=== PATIENT | female | born 1965 | race Caucasian/White ===

== ENCOUNTER → 2022-06-15 | Outpatient (CLI) | payer BC ==
[~2022-06-15] MED LIST: CETI-24 PO; FLON1SPR; MELO7.5T35 PO; PANT40TA29 PO
== END ==
LOC: M LABSMTC 10:39
PROVIDERS: ATTEND Anesthesiology
DX: Z01.818 Encounter for other preprocedural examination (principal); Z11.52 Encounter for screening for COVID-19

== ENCOUNTER → 2022-07-12 | Outpatient (CLI) | payer BC | LOC: M LABSMTC 09:26 | PROVIDERS: ATTEND Anesthesiology | DX: Z01.812 Encounter for preprocedural laboratory examination (principal); Z11.52 Encounter for screening for COVID-19 ==

== ENCOUNTER 2022-07-17 09:05 | Day surgery (SDC) | payer BC ==
[~2022-07-17] VITALS: Ht 167.6 cm; Wt 87.9 kg
[~2022-07-17 09:05] MED LIST changes: +NS 1,000 ML IV ONE
[2022-07-17] MEDS ORDERED: LIDOCAINE 2% 100MG/5ML SDV (FOR ANES.) As Ordered ONE (10:53)
[2022-07-17] MEDS ORDERED: propofoL 200 MG/20 ML VIAL As Ordered ONE ×2 (10:53→11:21)
[2022-07-17 12:10] VITALS: BP 121/73
== END 2022-07-17 12:30 | disposition home or self-care (01) ==
LOC: M OPP 09:05
PROVIDERS: ATTEND Internal Medicine Gastroenterology
DX: K22.2 Esophageal obstruction (principal); K44.9 Diaphragmatic hernia without obstruction or gangrene; K29.70 Gastritis, unspecified, without bleeding; K22.89 Other specified disease of esophagus; Z79.899 Other long term (current) drug therapy; J45.909 Unspecified asthma, uncomplicated

== ENCOUNTER → 2022-12-07 | Outpatient (CLI) | payer BC ==
[~2022-12-07] MED LIST changes: +ALL10TAB2 PO; +CETI5SOL3 PO; +FLON1SPR NARES; -NS 1,000 ML IV ONE
== END ==
LOC: M LABSMTC 09:50
PROVIDERS: ATTEND Anesthesiology
DX: Z01.818 Encounter for other preprocedural examination (principal); Z11.52 Encounter for screening for COVID-19

== ENCOUNTER 2022-12-12 10:49 | Day surgery (SDC) | payer BC ==
[~2022-12-12] VITALS: Ht 167.6 cm; Wt 87.5 kg
[~2022-12-12 10:49] MED LIST changes: +NS 1,000 ML IV ONE
[2022-12-12] MEDS ORDERED: propofoL 200 MG/20 ML VIAL As Ordered ONE ×3 (12:47→13:13)
[2022-12-12] MEDS ORDERED: LIDOCAINE 2% 100MG/5ML SDV (FOR ANES.) As Ordered ONE (12:47)
[2022-12-12] MEDS ORDERED: LABETALOL 100MG/20ML VIAL As Ordered ONE (13:12)
[2022-12-12] MEDS ORDERED: hydrALAZINE 20MG/ML 1ML VIAL As Ordered ONE (13:17)
[2022-12-12 14:00] VITALS: BP 127/84
== END 2022-12-12 15:15 | disposition home or self-care (01) ==
LOC: M OPP 10:49
PROVIDERS: ATTEND Internal Medicine Gastroenterology
DX: Z12.11 Encounter for screening for malignant neoplasm of colon (principal); D12.6 Benign neoplasm of colon, unspecified; K57.30 Diverticulosis of large intestine without perforation or abscess without bleeding; K64.4 Residual hemorrhoidal skin tags; K64.8 Other hemorrhoids; K22.2 Esophageal obstruction; K31.7 Polyp of stomach and duodenum; K22.4 Dyskinesia of esophagus; Z79.52 Long term (current) use of systemic steroids; Z79.899 Other long term (current) drug therapy; G43.909 Migraine, unspecified, not intractable, without status migrainosus; Z80.42 Family history of malignant neoplasm of prostate
CPT/HCPCS: 43249; 45385; 88305; J0360

== ENCOUNTER 2024-09-23 11:47 | Day surgery (SDC) | payer BC ==
[~2024-09-23] VITALS: Ht 167.6 cm; Wt 84.0 kg
[~2024-09-23 11:47] MED LIST changes: -NS 1,000 ML IV ONE; +PANT20TA6 PO
[2024-09-23] MEDS ORDERED: propofoL 200 MG/20 ML VIAL As Ordered ONE (13:57)
[2024-09-23] MEDS ORDERED: LIDOCAINE 2% 100MG/5ML SDV (FOR ANES.) As Ordered ONE (13:57)
[2024-09-23] MEDS ORDERED: ONDANSETRON 4MG 2ML VIAL As Ordered ONE (13:58)
[2024-09-23 14:11] VITALS: TEMP 97.3
[2024-09-23] MEDS: CEPACOL LOZENGE MT PRN (14:45)
[2024-09-23 14:55] VITALS: BP 144/65; O2SAT 98
== END 2024-09-23 15:00 | disposition home or self-care (01) ==
LOC: M OPP 11:47
PROVIDERS: ATTEND Internal Medicine Gastroenterology
DX: K22.2 Esophageal obstruction (principal); K22.4 Dyskinesia of esophagus; K21.9 Gastro-esophageal reflux disease without esophagitis; M19.90 Unspecified osteoarthritis, unspecified site; J30.9 Allergic rhinitis, unspecified; Z91.048 Other nonmedicinal substance allergy status; Z79.899 Other long term (current) drug therapy; Z80.42 Family history of malignant neoplasm of prostate
CPT/HCPCS: 43239; 43249; 88305; J2405